=== PATIENT | female | born 2000 | race Caucasian/White ===

== ENCOUNTER → 2024-04-28 | Outpatient (REF) | payer OTHER ==
[~2024-04-28] MED LIST: ATENOLOL50 MG PO; BUSPIRONE HCL10 MG PO; CARBAMAZEPINE200 MG PO; CETIRIZINE HCL10 MG PO; METAMUCIL FIBE3.4 GM PO; PANTOPRAZOLE SO40 MG PO; PROZAC10 MG PO; VIT B12 PO; VIT D3 PO
== END ==
LOC: US 07:50
PROVIDERS: ATTEND Nurse Practitioner
DX: R10.10 Upper abdominal pain, unspecified (principal)
CPT/HCPCS: 76700; 76856; 78227; A9537